=== PATIENT | female | born 1945 | race Asian ===

== ENCOUNTER 2016-05-03 08:17 | Emergency (ER) | payer MEDICAID ==
[~2016-05-03] VITALS: Ht 154.9 cm; Wt 72.7 kg
[~2016-05-03 08:17] MED LIST: AMLO-511 PO; ATOR10TA84 PO; INSU100C3 SQ; LOSA25TA21 PO; METO-323 PO; RALO60 PO; SITA50 PO; VITAD1000 PO
[2016-05-03] MEDS ORDERED: LOSA1TAB36 PO (08:28)
[2016-05-03 09:53] VITALS: BP 127/65
== END 2016-05-03 10:10 | disposition home or self-care (01) ==
LOC: EMS 08:19
DX: M79.671 Pain in right foot (principal); E11.9 Type 2 diabetes mellitus without complications; I10 Essential (primary) hypertension; E78.00 Pure hypercholesterolemia, unspecified; Z79.4 Long term (current) use of insulin
CPT/HCPCS: 82962; 99283

== ENCOUNTER → 2016-05-10 | Outpatient (CLI) | payer MEDICAID ==
[~2016-05-10] MED LIST changes: +LOSA1TAB36 PO; -LOSA25TA21 PO; -RALO60 PO
== END | disposition home or self-care (01) ==
LOC: RADPV 14:54
PROVIDERS: ATTEND Internal Medicine
DX: M77.31 Calcaneal spur, right foot (principal); M76.61 Achilles tendinitis, right leg; I70.8 Atherosclerosis of other arteries